=== PATIENT | female | born 1985 | race Caucasian/White ===

== ENCOUNTER → 2018-09-11 | Outpatient (CLI) | payer OTHER ==
[2018-09-11 19:32] LABS: BASO # 0.1 10^3/uL (0.0-0.2); BASO % 0.5 % (0.0-1.0); EOS # 0.1 10^3/uL (0.0-0.50); EOS % 1.1 % (0.0-3.0); HEMATOCRIT 40.7 % (36.0-47.0); HEMOGLOBIN 13.9 g/dl (12.0-15.5); IMMATURE GRANULOCYTE % 0.4 % (0-3.0); LYMPH # 2.7 10^3/uL (1.5-4.5); LYMPH % 29.1 % (24.0-44.0); MEAN CORPUSCULAR HEMOGLOBIN 31.6 pg (27.0-33.0); MEAN CORPUSCULAR HGB CONC 34.2 g/dl (32.0-36.5); MEAN CORPUSCULAR VOLUME 92.5 fl (80.0-96.0); MONO # 0.6 10^3/uL (0.0-0.8); MONO % 6.6 % (0.0-5.0); NEUTROPHILS # 5.7 10^3/uL (1.8-7.7); NEUTROPHILS % 62.3 % (36.0-66.0); PLATELET COUNT, AUTOMATED 325 10^3/uL (150-450); RED CELL DISTRIBUTION WIDTH 11.7 % (11.5-14.5); WHITE BLOOD COUNT 9.2 10^3/uL (4.0-10.0)
[2018-09-11 19:57] LABS: IMMUNOGLOBULIN E 55.7 IU/ML (<100); IMMUNOGLOBULIN G 1240 MG/DL (681-1648); IMMUNOGLOBULIN M 92 MG/DL (40-230)
[2018-09-13 11:03] LABS: RUBELLA IgG QUALITATIVE IMMUNE (IMMUNE)
[2018-09-19 17:40] LABS: ANTI TETANUS ANTIBODY 3.96 IU/mL (<0.10); STREP PNEUMO TYPE 1 0.1 ug/mL (>1.3); STREP PNEUMO TYPE 12F 0.1 ug/mL (>1.3); STREP PNEUMO TYPE 14 0.2 ug/mL (>1.3); STREP PNEUMO TYPE 19A 4.3 ug/mL (>1.3); STREP PNEUMO TYPE 19F 4.9 ug/mL (>1.3); STREP PNEUMO TYPE 23F 0.2 ug/mL (>1.3); STREP PNEUMO TYPE 3 1.8 ug/mL (>1.3); STREP PNEUMO TYPE 4 0.3 ug/mL (>1.3); STREP PNEUMO TYPE 6B 0.3 ug/mL (>1.3); STREP PNEUMO TYPE 7F 0.5 ug/mL (>1.3); STREP PNEUMO TYPE 8 0.2 ug/mL (>1.3); STREP PNEUMO TYPE 9N 0.3 ug/mL (>1.3); STREP PNEUMO TYPE 9V 1.2 ug/mL (>1.3)
== END ==
LOC: M SMT 15:26
DX: J31.0 Chronic rhinitis (principal); D84.9 Immunodeficiency, unspecified
CPT/HCPCS: 82785

== ENCOUNTER → 2018-12-27 | Outpatient (CLI) | payer OTHER ==
--- NOTE | 2018-12-27 15:33 | REP ---
Orbital CT study without contrast: History: Sinusitis. No comparison study. CT findings: There is a large mucous retention cyst in the left maxillary sinus. The mucous retention cyst has patchy cyst wall calcification. It measures 3.4 cm in greatest diameter. There is localized expansion and considerable thinning of the lateral wall of the maxillary sinus at the base overall, the maxillary sinus is not expanded. There is normal aeration in the superior portion of the maxillary sinus. The right maxillary sinus is clear. Frontal and ethmoid aeration is normal bilaterally. No intraorbital lesion is seen. Impression: Large mucous retention cyst in the left maxillary sinus focal eroding the inferolateral maxillary sinus wall. Otherwise negative orbital CT study. Electronically Signed by Paulo Pina MD 12/27/2018 03:55 P
== END ==
LOC: M RAD 14:19
PROVIDERS: ATTEND Ophthalmology
DX: J34.1 Cyst and mucocele of nose and nasal sinus (principal)

== ENCOUNTER 2019-02-18 05:18 | Emergency (ER) | payer OTHER ==
[~2019-02-18] VITALS: Ht 167.6 cm; Wt 119.1 kg
[2019-02-18 06:23] LABS: BASO % 0.4 % (0.0-1.0); HEMATOCRIT 39.7 % (36.0-47.0); HEMOGLOBIN 13.5 g/dl (12.0-15.5); LYMPH # 1.2 10^3/uL (1.5-4.5); LYMPH % 10.9 % (24.0-44.0); MEAN CORPUSCULAR HEMOGLOBIN 31.5 pg (27.0-33.0); MEAN CORPUSCULAR VOLUME 92.5 fl (80.0-96.0); MONO # 0.8 10^3/uL (0.0-0.8); MONO % 7.5 % (0.0-5.0); NEUTROPHILS # 8.9 10^3/uL (1.8-7.7); NEUTROPHILS % 80.8 % (36.0-66.0); PLATELET COUNT, AUTOMATED 288 10^3/uL (150-450); RED BLOOD COUNT 4.29 10^6/uL (4.00-5.40); WHITE BLOOD COUNT 10.9 10^3/uL (4.0-10.0)
[2019-02-18 06:38] LABS: HCG, SERUM QUALITATIVE NEGATIVE (NEGATIVE)
[2019-02-18] MEDS ORDERED: KETOROLAC 30 MG/ML VIAL (J1885) IV ONE (06:45)
[2019-02-18 06:46] LABS: ALBUMIN 3.9 GM/DL (3.2-5.2); ALT/SGPT 27 U/L (12-78); BILIRUBIN,DIRECT < 0.1 MG/DL (0.0-0.2); BILIRUBIN,TOTAL 0.3 MG/DL (0.2-1.0); BLOOD UREA NITROGEN 6 MG/DL (7-18); CALCIUM LEVEL 8.6 MG/DL (8.5-10.1); CARBON DIOXIDE LEVEL 21 MEQ/L (21-32); CHLORIDE LEVEL 105 MEQ/L (98-107); CREATININE FOR GFR 0.89 MG/DL (0.55-1.30); GLOMERULAR FILTRATION RATE > 60.0 (>60); GLUCOSE, FASTING 116 MG/DL (70-100); POTASSIUM SERUM 4.1 MEQ/L (3.5-5.1); SODIUM LEVEL 135 MEQ/L (136-145); TOTAL PROTEIN 8.1 GM/DL (6.4-8.2)
[2019-02-18 06:55] LABS: INFLUENZA A AMPLIFICATION POSITIVE (NEGATIVE); INFLUENZA B AMPLIFICATION NEGATIVE (NEGATIVE)
--- NOTE | 2019-02-18 06:59 | ECGEPIP ---
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
[2019-02-18] MEDS ORDERED: OSEL75CA PO (07:34)
[2019-02-18] MEDS ORDERED: AUGM875T28 PO (07:35)
[2019-02-18] MEDS ORDERED: ACETAMINOPHEN 500 MG TAB PO ONE (07:45)
[2019-02-18] MEDS ORDERED: OSELTAMIVIR PHOSPHATE 75 MG CAP (TAMIFLU) PO ONE (07:45)
[2019-02-18] MEDS ORDERED: AUGMENTIN 875 MG TAB PO ONE (07:45)
[2019-02-18 07:54] VITALS: BP 95/54
--- NOTE | 2019-02-18 09:03 | REP ---
Chest x-ray: Two views. History: Cough and wheezing . Comparison study: No comparison . Findings: The lungs are well inflated and free of infiltrate. The pleural angles are sharp. The heart size is normal. Pulmonary vasculature is not increased. No significant bony abnormality is seen. Impression: Negative chest x-ray. Electronically Signed by Paulo Pina MD 02/18/2019 08:54 A
[2019-02-26] MEDS ORDERED: MULT1TAB10 PO (13:57)
[2019-02-26] MEDS ORDERED: VENTAER INH (13:57)
== END 2019-02-18 08:25 | disposition home or self-care (01) ==
LOC: M ED 05:18
DX: J10.1 Influenza due to other identified influenza virus with other respiratory manifestations (principal); J34.1 Cyst and mucocele of nose and nasal sinus; J34.89 Other specified disorders of nose and nasal sinuses
CPT/HCPCS: 71046; 80048; 80076; 83605; 84703; 85025; 87040; 87502; 87880; 93005; 93041; 94760; 99284; J1885

== ENCOUNTER 2019-03-04 09:53 | Day surgery (SDC) | payer OTHER ==
[~2019-03-04] VITALS: Ht 165.1 cm; Wt 116.6 kg
[~2019-03-04 09:53] MED LIST: AUGM875T28 PO; MULT1TAB10 PO; OSEL75CA PO; VENTAER INH
[2019-03-04 10:39] LABS: URINE PREG TEST NEGATIVE (NEGATIVE)
[2019-03-04] MEDS ORDERED: ONDANSETRON 4MG/2ML VIAL (J2405) As Ordered ONE (10:44)
[2019-03-04] MEDS ORDERED: LIDOCAINE 2% INJ 100 MG/5 ML SDV (FOR ANES.) As Ordered ONE (10:44)
[2019-03-04] MEDS ORDERED: PROPOFOL 200 MG/20 ML VIAL As Ordered ONE (10:44)
[2019-03-04] MEDS ORDERED: fentaNYL 250 MCG/5 ML INJECTION (J3010) As Ordered ONE (10:44)
[2019-03-04] MEDS ORDERED: ROCURONIUM BROMIDE 50 MG/5 ML VIAL As Ordered ONE (10:44)
[2019-03-04] MEDS ORDERED: dexameTHASONE 4 MG/ML 1ML VIAL (J1100) As Ordered ONE (10:44)
[2019-03-04] MEDS ORDERED: MIDAZOLAM INJ 2 MG/2 ML VIAL (J2250) As Ordered ONE (10:45)
[2019-03-04] MEDS ORDERED: METHYLENE BLUE 0.5% (5MG/ML) 10 ML AMP (PROVAYBLUE)(Q9968 PER 1MG) As Ordered ONE (11:07)
[2019-03-04] MEDS ORDERED: LIDOCAINE W/EPINEPHRINE 1% 20ML VIAL As Ordered ONE (11:08)
[2019-03-04] MEDS ORDERED: OXYMETAZOLINE NASAL SPRAY (AFRIN) As Ordered ONE (11:08)
[2019-03-04] MEDS ORDERED: EPINEPHrine 1MG/ML INJ 30ML MD-VIAL As Ordered ONE (11:08)
[2019-03-04] MEDS ORDERED: ACETAMINOPHEN 1000MG 100ML IV BTL (OFIRMEV) (J0131 PER 10MG) As Ordered ONE (12:16)
[2019-03-04] MEDS ORDERED: NEOSTIGMINE 10 MG/10 ML VIAL (J2710) As Ordered ONE (12:29)
[2019-03-04] MEDS ORDERED: GLYCOPYRROLATE INJ 0.2 MG/ML 2 ML VIAL As Ordered ONE (12:29)
[2019-03-04] MEDS ORDERED: PERCOCET 5MG/325MG TAB As Ordered ONE (13:15)
[2019-03-04] MEDS ORDERED: fentaNYL 100 MCG/2 ML INJECTION (J3010) As Ordered ONE (13:15)
[2019-03-04] MEDS: PERCOCET 5MG/325MG TAB PO PRN ×2 (13:20→13:56)
[2019-03-04] MEDS: fentaNYL 100 MCG/2 ML INJECTION (J3010) IV PRN ×2 (13:20→13:31)
[2019-03-04] MEDS ORDERED: ONDANSETRON 4MG/2ML VIAL (J2405) IV PRN (13:30)
[2019-03-04] MEDS ORDERED: IBUPROFEN 800 MG TAB PO PRN (13:30)
[2019-03-04] MEDS ORDERED: PERCOCET 5MG/325MG TAB PO PRN (13:30)
[2019-03-04] MEDS ORDERED: LR 1,000 ML IV SCH (13:30)
[2019-03-04] MEDS ORDERED: METOCLOPRAMIDE INJ 10MG/2ML VIAL (J2765) As Ordered ONE (15:56)
[2019-03-04] MEDS ORDERED: METOCLOPRAMIDE INJ 10MG/2ML VIAL (J2765) IV PRN (16:15)
[2019-03-04] MEDS ORDERED: METOCLOPRAMIDE INJ 10MG/2ML VIAL (J2765) IV ONE (16:15)
[2019-03-04 16:35] VITALS: BP 125/72
--- NOTE | 2019-03-17 14:07 | RO ---
DATE OF PROCEDURE: 03/04/2019 PREOPERATIVE DIAGNOSIS: Left maxillary sinus cystic mass. POSTOPERATIVE DIAGNOSIS: Left maxillary sinus cystic mass. PROCEDURE: Left Malloy-Moustapha and complete excision and removal of left maxillary sinus cyst. SURGEON: Dr. Patel Gonzalez MACHINE SETTER AUTOMATIC: ANESTHESIA: INDICATIONS: This is a 33-year-old that presents with a history of recurrent sinusitis and on CT scan demonstrated a large cystic mass expanding into the left maxillary sinus with dehiscence of the lateral wall of the maxillary sinus and the inferior floor of the sinus. Concern was this could be some type of odontogenic tumor with expansion through the bone of the sinus. DESCRIPTION OF PROCEDURE: After satisfactory general endotracheal anesthesia was administered and pharyngeal pack placed, the nose was prepared for surgery with placement of cotton soaked pledgets of Afrin solution to the left nasal cavity. 1% Xylocaine with 1:100,000 epinephrine was injected into the canine fossa. A 15 blade was used to make an incision in the canine fossa and extending it a little more laterally than usual to expose the area of the maxillary sinus where there was dehiscent bone and expansion of the cyst through it. With elevators, the mucoperiosteum was elevated off the face of the maxilla starting inferiorly and working superiorly almost up to the infraorbital nerve foramen because it was then elevated inferiorly as well. With a drill, an antrostomy was made on the anterior face of the maxilla. Then using Kerrison rongeurs, this was expanded under direct visualization. Immediately, there was an evacuation of contents of the cyst which looked like thick purulent cheesy material. This was completely evacuated, while the inspection of the area of dehiscent bone laterally showed that there was no extracapsular invasion of the soft tissues and then wherever this expansion was it seemed to be well contained within the cystic mass. It appeared that there was an eggshell thin wall surrounding the cyst which was removed in its entirety. Once a large enough antrostomy was made, it was easy under direct visualization to take curettes and rongeurs and to completely evacuate all the contents of the cyst and its containing thin bony wall. Once the maxillary sinus was completely clear of all the cystic contents as well as its capsule, new gauze soaked in Adrenaline was placed into the sinus for five minutes to control any superficial bleeding. Once this was done, it appeared there was no significant bleeding in the sinus and then the incision was closed using a running locking #3-0 chromic suture. Next, a middle meatus maxillary antrostomy was created endoscopically. The Afrin pledget was removed from the nose and 1% xylocaine with 1:100,000 epinephrine was injected in the lateral nasal wall. Using the 0 degrees telescope and the microdebrider, the uncinate process was taken down, the ethmoid bulla was resected anteriorly and the natural maxillary sinus ostia was identified and it was enlarged using a combination of side biting and upbiting forceps making a very large antrostomy. Adrenaline pledgets were placed in the nose for three minutes and these were removed and there was no significant bleeding. NasaPore was placed into the middle meatus. The pharyngeal pack was removed. Throat suctioned. The patient was then awakened, extubated and transferred to recovery room in satisfactory condition.
== END 2019-03-04 16:37 | disposition home or self-care (01) ==
LOC: M SDC 09:53
PROVIDERS: ATTEND Specialist
DX: J34.1 Cyst and mucocele of nose and nasal sinus (principal); K21.9 Gastro-esophageal reflux disease without esophagitis; F32.9 Major depressive disorder, single episode, unspecified; F41.9 Anxiety disorder, unspecified; J45.909 Unspecified asthma, uncomplicated; Z79.899 Other long term (current) drug therapy; Z87.891 Personal history of nicotine dependence
CPT/HCPCS: 31030; 31255; 31267; 84703; 87070; 87075; 87205; 88305; 88313; J0131; J1100; J2250; J2405; J2710; J2765; J3010; Q9968

== ENCOUNTER → 2020-04-30 | Outpatient (CLI) | payer OTHER ==
--- NOTE | 2020-05-01 08:21 | REP ---
REASON FOR EXAM: Atraumatic pain. There are on priors for comparison. SHOULDER: COMPARISON: No priors. FINDINGS: Three views of the right shoulder were performed. The acromioclavicular and glenohumeral relationships are within normal limits. There is no acute fracture or destructive osseous lesions. Electronically Signed by Anthony Kerns DO 05/03/2020 10:53 A
== END ==
LOC: M RAD 14:58
PROVIDERS: ATTEND Physician Assistant
DX: M25.511 Pain in right shoulder (principal)

== ENCOUNTER → 2020-06-02 | Outpatient (CLI) | payer OTHER ==
[2020-06-02 15:28] LABS: BASO % 0.4 % (0.0-1.0); EOS # 0.1 10^3/uL (0.0-0.5); EOS % 0.9 % (0.0-3.0); HEMATOCRIT 41.1 % (36.0-47.0); HEMOGLOBIN 13.8 g/dl (12.0-15.5); LYMPH # 2.3 10^3/uL (1.5-5.0); LYMPH % 30.2 % (24.0-44.0); MEAN CORPUSCULAR HEMOGLOBIN 31.3 pg (27.0-33.0); MEAN CORPUSCULAR HGB CONC 33.6 g/dl (32.0-36.5); MEAN CORPUSCULAR VOLUME 93.2 fl (80.0-96.0); MONO # 0.6 10^3/uL (0.0-0.8); MONO % 7.6 % (0.0-5.0); NEUTROPHILS # 4.7 10^3/uL (1.5-8.5); NEUTROPHILS % 60.6 % (36.0-66.0); PLATELET COUNT, AUTOMATED 318 10^3/uL (150-450); RED BLOOD COUNT 4.41 10^6/uL (4.00-5.40); WHITE BLOOD COUNT 7.7 10^3/uL (4.0-10.0)
[2020-06-02 15:41] LABS: HEMOGLOBIN A1c 5.5 %
[2020-06-02 16:02] LABS: ALBUMIN 3.7 GM/DL (3.2-5.2); ALT/SGPT 29 U/L (12-78); BILIRUBIN,TOTAL 0.6 MG/DL (0.2-1.0); BLOOD UREA NITROGEN 7 MG/DL (7-18); CALCIUM LEVEL 9.1 MG/DL (8.5-10.1); CARBON DIOXIDE LEVEL 26 MEQ/L (21-32); CHLORIDE LEVEL 105 MEQ/L (98-107); CHOLESTEROL LEVEL 136 MG/DL (<200); CHOLESTEROL RISK RATIO 4.387 (<5); CREATININE FOR GFR 0.76 MG/DL (0.55-1.30); GLOMERULAR FILTRATION RATE > 60.0 (>60); GLUCOSE, FASTING 89 MG/DL (70-100); HDL CHOLESTEROL 31 MG/DL (>40); LDL CHOLESTEROL 76 MG/DL (<100); NON-HDL-C 105 MG/DL; POTASSIUM SERUM 4.4 MEQ/L (3.5-5.1); SODIUM LEVEL 135 MEQ/L (136-145); THYROID STIMULATING HORMONE 0.264 uIU/ML (0.358-3.740); TOTAL PROTEIN 7.6 GM/DL (6.4-8.2); TRIGLYCERIDES LEVEL 145 MG/DL (<150)
[2020-06-02 16:04] LABS: TOTAL 25(OH) VITAMIN D 19.2 NG/ML (30.0-100.0)
== END ==
LOC: M LAB 14:54
PROVIDERS: ATTEND Physician Assistant
DX: R76.11 Nonspecific reaction to tuberculin skin test without active tuberculosis (principal); Z13.220 Encounter for screening for lipoid disorders; Z13.29 Encounter for screening for other suspected endocrine disorder

== ENCOUNTER → 2020-06-06 | Outpatient (CLI) | payer OTHER | LOC: M RAD 15:05 | PROVIDERS: ATTEND Physician Assistant | DX: Z53.9 Procedure and treatment not carried out, unspecified reason (principal); Z22.7 Latent tuberculosis ==

== ENCOUNTER → 2020-06-07 | Outpatient (CLI) | payer OTHER ==
--- NOTE | 2020-06-08 01:14 | REP ---
CHEST, TWO VIEWS: There is no evidence of acute infiltrate. No pleural effusion is seen. The heart is normal in size. The mediastinal silhouette is unremarkable. The visualized osseous structures are intact. IMPRESSION: No acute pulmonary disease. Electronically Signed by Reggie Caes MD 06/08/2020 11:33 P
== END ==
LOC: M RAD 13:55
PROVIDERS: ATTEND Physician Assistant
DX: Z11.1 Encounter for screening for respiratory tuberculosis (principal)

== ENCOUNTER → 2020-12-21 | Outpatient (CLI) | payer SELFPAY | LOC: M LABSMTC 14:04 | PROVIDERS: ATTEND Pediatrics | DX: Z20.822 Contact with and (suspected) exposure to COVID-19 (principal) ==

== ENCOUNTER → 2020-12-27 | Outpatient (CLI) | payer SELFPAY | LOC: M LABSMTC 10:48 | PROVIDERS: ATTEND Pediatrics | DX: Z20.822 Contact with and (suspected) exposure to COVID-19 (principal) ==

== ENCOUNTER → 2021-01-10 | Outpatient (CLI) | payer SELFPAY | LOC: M LABSMTC 11:03 | PROVIDERS: ATTEND Pediatrics | DX: Z20.822 Contact with and (suspected) exposure to COVID-19 (principal) ==

== ENCOUNTER → 2021-01-17 | Outpatient (CLI) | payer SELFPAY | LOC: M LABSMTC 09:53 | PROVIDERS: ATTEND Pediatrics | DX: Z20.822 Contact with and (suspected) exposure to COVID-19 (principal) ==

== ENCOUNTER → 2021-01-24 | Outpatient (CLI) | payer SELFPAY | LOC: M LABSMTC 09:55 | PROVIDERS: ATTEND Pediatrics | DX: Z11.52 Encounter for screening for COVID-19 (principal) ==

== ENCOUNTER → 2021-01-31 | Outpatient (CLI) | payer SELFPAY | LOC: M LABSMTC 09:45 | PROVIDERS: ATTEND Pediatrics | DX: Z20.822 Contact with and (suspected) exposure to COVID-19 (principal) ==

== ENCOUNTER → 2021-02-07 | Outpatient (CLI) | payer SELFPAY | LOC: M LABSMTC 12:31 | PROVIDERS: ATTEND Pediatrics | DX: Z20.822 Contact with and (suspected) exposure to COVID-19 (principal) ==

== ENCOUNTER → 2021-02-14 | Outpatient (CLI) | payer SELFPAY | LOC: M LABSMTC 09:50 | PROVIDERS: ATTEND Pediatrics | DX: Z20.822 Contact with and (suspected) exposure to COVID-19 (principal) ==

== ENCOUNTER → 2021-02-22 | Outpatient (CLI) | payer SELFPAY | LOC: M LABSMTC 13:58 | PROVIDERS: ATTEND Pediatrics | DX: Z11.52 Encounter for screening for COVID-19 (principal) ==

== ENCOUNTER → 2021-03-07 | Outpatient (CLI) | payer SELFPAY | LOC: M LABSMTC 14:23 | PROVIDERS: ATTEND Pediatrics | DX: Z11.52 Encounter for screening for COVID-19 (principal) ==

== ENCOUNTER → 2021-03-15 | Outpatient (CLI) | payer SELFPAY | LOC: M LABSMTC 13:58 | PROVIDERS: ATTEND Pediatrics | DX: Z11.52 Encounter for screening for COVID-19 (principal) ==

== ENCOUNTER → 2021-03-28 | Outpatient (CLI) | payer OTHER | LOC: M LABSMTC 09:56 | PROVIDERS: ATTEND Pediatrics | DX: Z11.52 Encounter for screening for COVID-19 (principal) ==

== ENCOUNTER → 2021-04-07 | Outpatient (CLI) | payer OTHER ==
[~2021-04-07] MED LIST changes: +GASTROGRAFIN SOLUTION 30ML (Q9963) As Ordered ONE; +ISOVUE-370 76% 100ML VIAL As Ordered ONE
--- NOTE | 2021-04-08 07:51 | REP ---
INDICATION: LOWER ABDOMINAL PAIN, UNSPECIFIED. COMPARISON: None TECHNIQUE: Axial contrast-enhanced images from the lung bases to the pubic symphysis using oral 100 cc Isovue 370 intravenous contrast material. Coronal and sagittal reformations obtained. This CT examination was performed using the following dose reduction techniques: Automated exposure control, adjustment of mA and/or kv according to the patient's size, and the use of iterative reconstruction technique. FINDINGS: Liver, spleen, pancreas, gallbladder, bilateral adrenal glands and kidneys are normal. The enteric system including stomach, small, and large bowel appears normal. No evidence for obstruction or acute inflammatory process. Normal terminal ileum and appendix are identified in the right lower quadrant. Pelvis demonstrates normal bladder and age-appropriate uterus/adnexa. No ascites. No free air. No intraperitoneal or retroperitoneal adenopathy. Abdominal aorta and vasculature appear normal. Musculoskeletal structures are intact and without acute osseous abnormality. IMPRESSION: No acute abdominopelvic pathology appreciated. <Electronically signed by Bandar Garcia > 04/08/21 0721
== END ==
LOC: M RAD 15:26
PROVIDERS: ATTEND Physician Assistant
DX: R10.9 Unspecified abdominal pain (principal)
CPT/HCPCS: 74177; Q9963; Q9967

== ENCOUNTER → 2021-04-30 | Outpatient (CLI) | payer SELFPAY ==
[~2021-04-30] MED LIST changes: -GASTROGRAFIN SOLUTION 30ML (Q9963) As Ordered ONE; -ISOVUE-370 76% 100ML VIAL As Ordered ONE
== END ==
LOC: M LABSMTC 10:42
PROVIDERS: ATTEND Pediatrics
DX: Z11.52 Encounter for screening for COVID-19 (principal)

== ENCOUNTER → 2021-05-20 | Outpatient (CLI) | payer OTHER | LOC: M LABSMTC 12:13 | PROVIDERS: ATTEND Pediatrics | DX: Z11.52 Encounter for screening for COVID-19 (principal) ==

== ENCOUNTER → 2023-01-01 | Outpatient (CLI) | payer OTHER | LOC: M RAD 10:09 | PROVIDERS: ATTEND Physician Assistant | DX: M25.541 Pain in joints of right hand (principal) ==

== ENCOUNTER → 2023-07-10 | Outpatient (CLI) | payer OTHER, MEDICAID | LOC: M SOG 09:48 | PROVIDERS: ATTEND Orthopaedic Surgery Hand Surgery | DX: M79.641 Pain in right hand (principal) ==